=== PATIENT | male | born 2000 | race Two or more races ===

== ENCOUNTER 2023-12-23 08:08 | Emergency (ER) | payer MEDICAID ==
[~2023-12-23] VITALS: Ht 175.3 cm; Wt 70.8 kg
[2023-12-23 08:15] VITALS: BP 159/95; RESP 18; O2SAT 96
[2023-12-23 08:29] VITALS: PULSE 81
[2023-12-23 09:00] LABS: Urine Bacteria None Seen /hpf (None Seen)
[2023-12-23 09:16] LABS: Urine Blood Negative /uL (Negative); Urine Clarity Clear (Clear); Urine Color Light-Yellow (Yellow); Urine Mucus FEW (None Seen); Urine Protein, UAD Negative (Negative); Urine Specific Gravity 1.018 (1.001-1.035); Urine Urobilinogen Normal (Negative); Urine WBC <1 /hpf (0 - 3)
[2023-12-23 09:29] LABS: Amphetamine Screen, Urine Neg (NEGATIVE); Barbiturate Scree,Urine Neg (NEGATIVE); Benzodiazephine Screen, Urine Neg (NEGATIVE); Cocaine Screen, Urine Neg (NEGATIVE)
[2023-12-23 09:30] LABS: Cannabinoid Screen, Urine Neg (NEGATIVE); Opiate Scree,Urine Neg (NEGATIVE); Phencyclidine Screen, Urine Neg (NEGATIVE)
[2023-12-23] MEDS ORDERED: SODIUM CHLORIDE 0.9% 1,000 ML IV ONE (10:00)
== END 2023-12-23 10:05 | disposition left against medical advice (07) ==
LOC: ER 08:08
DX: R55 Syncope and collapse (principal); Z79.899 Other long term (current) drug therapy
CPT/HCPCS: 80307; 81001; 93005

== ENCOUNTER 2023-12-30 22:32 | Emergency (ER) | payer MEDICAID ==
[~2023-12-30] VITALS: Ht 175.3 cm; Wt 72.0 kg
[2023-12-30 22:32] VITALS: BP 125/82; RESP 16; TEMP 98.2; O2SAT 98
[2023-12-31 00:09] VITALS: PULSE 76
[2023-12-31] MEDS ORDERED: METR375C PO (02:16)
[2023-12-31] MEDS ORDERED: OMEP-448 PO (02:16)
== END 2023-12-31 02:32 | disposition home or self-care (01) ==
LOC: ER 22:32
DX: K25.9 Gastric ulcer, unspecified as acute or chronic, without hemorrhage or perforation (principal); B96.81 Helicobacter pylori [H. pylori] as the cause of diseases classified elsewhere; R14.3 Flatulence; F41.9 Anxiety disorder, unspecified
CPT/HCPCS: 71045; 93005

== ENCOUNTER 2024-04-12 08:09 | Inpatient (IN) | payer MEDICAID ==
[2024-04-10 12:51] LABS: Urine Bacteria None Seen /hpf (None Seen); Urine WBC None Seen /hpf (0 - 3)
[2024-04-10 13:00] LABS: Basophils # (auto) 0 10 ^3/uL (0-0.2); Basophils % (auto) 0.4 % (0.0-2.0); Eosinophils # (auto) 0 10 ^3/uL (0-0.8); Eosinophils % (auto) 0.9 % (0.0-7.0); Hematocrit 49.7 % (41.0-53.0); Hemoglobin 17.5 g/dL (13.5-17.5); Lymphocytes # (auto) 2.3 10 ^3/uL (0.4-5.4); Lymphocytes % (auto) 45.8 % (10.0-50.0); Mean Corpuscular Hemoglobin 31.8 pg (28.0-32.0); Mean Corpuscular Hgb Conc. 35.2 g/dL (32.0-36.0); Mean Corpuscular Volume 90.4 fL (80.0-100.0); Monocytes # (auto) 0.4 10 ^3/uL (0-1.3); Monocytes % (auto) 8.2 % (0.0-12.0); Neutrophils # (auto) 2.2 10 ^3/uL (1.6-8.6); Neutrophils % (auto) 44.7 % (37.0-80.0); Nucleated Red Blood Cells % 0.3 %; Platelet Count (auto) 199 10^3/uL (140-450); Red Blood Cells 5.49 10^6/uL (4.5-5.90); Red Cell Distribution Width 12.8 % (11.8-14.3)
[2024-04-10 13:14] LABS: INR 1.09 (0.9-1.15); Partial Thromboplastin Time 31.6 SEC (24.5-34.5); Prothrombin Time 11.5 sec (9.3-11.8)
[2024-04-10 13:39] LABS: Alanine Aminotransferase 14 U/L (7-40); Albumin 5.1 g/dL (3.2-4.8); Alkaline Phosphatase 60 U/L (46-116); Anion Gap 4 (5-15); Aspartate Aminotransferase 10 U/L (13-40); BUN/Creatinine Ratio 6.5 (10.0-20.0); Blood Urea Nitrogen 8 mg/dL (9-23); Calcium 9.9 mg/dL (8.7-10.4); Carbon Dioxide 30 mmol/L (20-30); Chloride 106 mmol/L (98-107); Glucose 92 mg/dL (74-106); Potassium 4.1 mmol/L (3.5-5.1); Sodium 140 mmol/L (136-145)
[2024-04-10 13:40] LABS: Bilirubin, Total 1.2 mg/dL (0.2-1.0); Total Protein 7.5 g/dL (5.7-8.2)
[2024-04-10 14:26] LABS: Urine Color Yellow (Yellow)
[2024-04-10 14:27] LABS: Urine Clarity CLEAR (Clear); Urine Protein, UAD Trace (Negative); Urine Specific Gravity 1.027 (1.001-1.035)
[2024-04-10 14:28] LABS: Urine Blood Normal /uL (Negative); Urine Urobilinogen Normal (Negative)
[~2024-04-12] VITALS: Ht 175.3 cm; Wt 74.5 kg
[~2024-04-12 08:09] MED LIST: ATOM25CA PO; BUPR150T18 PO
[2024-04-12] MEDS: ceFAZolin 2 GM/D5W50ml 50 ML IV ONE (08:52)
[2024-04-12] MEDS ORDERED: fentaNYL CITRATE 100 MCG/2 ML VL ONE (10:43)
[2024-04-12] MEDS ORDERED: MEPERIDINE HCL (50 MG/ML) 1 ML VIAL ONE (10:43)
[2024-04-12] MEDS ORDERED: MIDAZOLAM HCL 2MG/2ML 2ml VIAL (1mg/ml) ONE (10:43)
[2024-04-12] MEDS ORDERED: DexAMETHasone SOD PHOS 10MG/1ML VIAL INJ ONE (10:59)
[2024-04-12] MEDS ORDERED: PROPOFOL 10 MG/ML 20 ML IV ONE (11:00)
[2024-04-12] MEDS ORDERED: ePHEDrine SULFATE 50 MG/ML AMP IV PRN (11:30)
[2024-04-12] MEDS ORDERED: HYDROmorphone HCL 2 MG/ML VL/or syr IV PRN ×3 (11:30→13:45)
[2024-04-12] MEDS ORDERED: hydrALAZINE HCL 20 MG/ML VL IV PRN (11:30)
[2024-04-12] MEDS ORDERED: MIDAZOLAM HCL 2MG/2ML 2ml VIAL (1mg/ml) IV PRN (11:30)
[2024-04-12] MEDS ORDERED: ONDANSETRON HCL 4 MG/2 ML VIAL IV ONE (11:30)
[2024-04-12] MEDS ORDERED: MORPHINE SULFATE 4 MG/ML SYR/VIAL IV PRN (11:30)
[2024-04-12] MEDS: LIDOCAINE W/ EPINEPHRINE 1% 20ML VIAL ONE (12:11)
[2024-04-12 12:35] VITALS: RESP 16; O2SAT 98
[2024-04-12] MEDS: ceFAZolin 1GM/50ML 50 ML IV SCH (14:00)
[2024-04-12] MEDS: metroNIDAZOLE 500MG/100ML 100 ML IV SCH (15:00)
[2024-04-12 15:40] VITALS: BP 107/63; PULSE 73; RESP 15; TEMP 97.6; O2SAT 96
[2024-04-12 16:52] VITALS: O2SAT 97
[2024-04-12 17:00] VITALS: BP 97/60; PULSE 76; RESP 15; TEMP 98.4; O2SAT 96
[2024-04-12] MEDS: D5W/SOD CHL 0.45%/KCL 20MEQ 1,000 ML IV SCH (18:18)
[2024-04-12 20:00] VITALS: PULSE 77; RESP 17
[2024-04-12 21:00] VITALS: BP_SYST 110; BP_SYST 116; BP_DIAS 57; PULSE 77; RESP 17; TEMP 98.5; O2SAT 96
[2024-04-13] VITALS (8 sets, daily range): BP systolic 104–121; BP diastolic 49–70; PULSE 69–87; RESP 15–20; TEMP 97.6–98.4; O2SAT 95–100
[2024-04-13 05:54] LABS: Basophils # (auto) 0 10 ^3/uL (0-0.2); Basophils % (auto) 0.1 % (0.0-2.0); Eosinophils # (auto) 0 10 ^3/uL (0-0.8); Hematocrit 46.5 % (41.0-53.0); Hemoglobin 16.7 g/dL (13.5-17.5); Lymphocytes # (auto) 0.6 10 ^3/uL (0.4-5.4); Lymphocytes % (auto) 6.6 % (10.0-50.0); Mean Corpuscular Hemoglobin 32.6 pg (28.0-32.0); Mean Corpuscular Hgb Conc. 35.9 g/dL (32.0-36.0); Mean Corpuscular Volume 90.9 fL (80.0-100.0); Monocytes # (auto) 0.5 10 ^3/uL (0-1.3); Monocytes % (auto) 5.8 % (0.0-12.0); Neutrophils # (auto) 7.9 10 ^3/uL (1.6-8.6); Neutrophils % (auto) 87.5 % (37.0-80.0); Platelet Count (auto) 207 10^3/uL (140-450); Red Blood Cells 5.11 10^6/uL (4.5-5.90); Red Cell Distribution Width 12.9 % (11.8-14.3); White Blood Cell 9.1 10^3/uL (4.4-10.8)
[2024-04-13 06:07] LABS: Alanine Aminotransferase 35 U/L (7-40); Albumin 4.4 g/dL (3.2-4.8); Alkaline Phosphatase 53 U/L (46-116); Anion Gap 9 (5-15); Aspartate Aminotransferase 31 U/L (13-40); BUN/Creatinine Ratio 4.7 (10.0-20.0); Blood Urea Nitrogen 5 mg/dL (9-23); Calcium 9.3 mg/dL (8.7-10.4); Carbon Dioxide 25 mmol/L (20-30); Chloride 106 mmol/L (98-107); Glucose 132 mg/dL (74-106); Potassium 3.8 mmol/L (3.5-5.1); Sodium 140 mmol/L (136-145)
[2024-04-13 06:08] LABS: Bilirubin, Total 0.9 mg/dL (0.2-1.0); Total Protein 6.8 g/dL (5.7-8.2)
[2024-04-13] MEDS: HYDROcodone-ACET 5/325MG TAB PO PRN (09:48)
[2024-04-13] MEDS ORDERED: CEPH500C PO (10:01)
[2024-04-13] MEDS ORDERED: DOCU-94 PO (10:01)
[2024-04-13] MEDS ORDERED: TRAM-626 PO (10:01)
[2024-04-14 01:00] VITALS: BP 95/62; PULSE 66; RESP 20; TEMP 98.2; O2SAT 97
[2024-04-14 05:00] VITALS: BP_SYST 107; BP_SYST 164; BP_DIAS 65; BP_DIAS 89; PULSE 111; PULSE 74; RESP 20; RESP 22; TEMP 97.7; TEMP 98.6; O2SAT 95; O2SAT 97
[2024-04-14 09:00] VITALS: BP 116/69; PULSE 67; RESP 16; TEMP 98.5; O2SAT 98
[2024-04-14 13:00] VITALS: BP 110/69; PULSE 64; RESP 16; TEMP 98.4; O2SAT 95
[2024-04-14] MEDS: ONDANSETRON HCL 4 MG/2 ML VIAL IV PRN (13:17)
[2024-04-14] MEDS ORDERED: ROCURONIUM 10MG/ML 10ML VIAL IV ONE (16:11)
== END 2024-04-14 16:12 | disposition home or self-care (01) | DRG 263 ==
LOC: SUR 08:09 → OVERFLOW 13:31 → CENTRAL 15:35
PROVIDERS: ADMIT Internal Medicine; ATTEND Internal Medicine
PROC: 0FT44ZZ Resection of Gallbladder, Percutaneous Endoscopic Approach (ICD-10-PCS; principal; 2024-04-12 11:06)
DX: K80.10 Calculus of gallbladder with chronic cholecystitis without obstruction (principal); F41.9 Anxiety disorder, unspecified; K59.00 Constipation, unspecified; Z90.49 Acquired absence of other specified parts of digestive tract
CPT/HCPCS: 36415; 80053; 81001; 85025; 85610; 85730; 86850; 86900; 86901; G0378; J1100; J2250; J2405; J2704; J3490